=== PATIENT | male | born 1970 | race Caucasian/White ===

== ENCOUNTER 2020-12-22 21:23 | Emergency (ER) | payer BC ==
[~2020-12-22] VITALS: Ht 188 cm; Wt 143.8 kg
== END 2020-12-22 23:12 | disposition home or self-care (01) ==
LOC: ER 22:39
DX: L03.116 Cellulitis of left lower limb (principal); R07.81 Pleurodynia; F17.210 Nicotine dependence, cigarettes, uncomplicated
CPT/HCPCS: 71101; 99283